=== PATIENT | female | born 1940 | race Hispanic/Latino ===

== ENCOUNTER 2016-11-23 08:12 | Day surgery (SDC) | payer MEDICARE ==
[2016-01-23 14:53] VITALS: PULSE 89
[2016-11-23] MEDS ORDERED: Midazolam 2 MG/2 ML VIAL ONE (10:00)
[2016-11-23] MEDS ORDERED: Propofol 10 mg/ml Inj (20 ML) ONE (10:00)
[2016-11-23] MEDS ORDERED: HYDROmorphone 0.5 mg/0.5 ml ISec IVP PRN (10:50)
[2016-11-23] MEDS ORDERED: Lactated Ringer's 1,000 ML IV SCH (11:17)
[2016-11-23 12:26] VITALS: RESP 20; TEMP 97.8
[2016-11-23 12:33] VITALS: BMI 30.9
[2016-11-23 13:08] VITALS: BP 118/74; PULSE 90; O2SAT 93
--- NOTE | 2016-12-10 11:15 | OP ---
PROCEDURE DATE: 11/23/2016 PREOPERATIVE DIAGNOSIS: Postmenopausal bleeding. POSTOPERATIVE DIAGNOSIS: Postmenopausal bleeding. PROCEDURE: Examination under anesthesia, dilation and curettage. SURGEON: Dk Bradshaw MD TYPE OF ANESTHESIA: General. ANESTHESIA ADMINISTERED BY: Eris Wilkerson MD FLUIDS: IV crystalloids and IV prophylactic antibiotics. DRAINS: None. ESTIMATED BLOOD LOSS: Minimal. CONDITION: Stable. CLINICAL FINDINGS: This is a 76-year-old female with a preoperative diagnosis as described above, who after discussion of the risks, benefits, expected outcomes of all treatment alternatives, elected for the surgery described above and signed written informed consent. DESCRIPTION OF PROCEDURE: The patient was brought the OR, placed under an adequate level of general anesthesia, then prepped and draped in the usual sterile for vaginal surgery. The legs placed and properly positioned in Cj universal stirrups. The bladder was drained to straight catheter. Examination under anesthesia was performed and weighted-speculum placed into the vagina. The cervix was placed on traction with tenaculum and gently dilated and curettage of the endometrial cavity was carried out. A small amount of benign-appearing tissue was obtained. The tenaculum was removed. No bleeding was noted from tenaculum site. No bleeding was noted from the cervical os. This concluded surgical procedure. The patient tolerated the procedure well and was brought to recovery in stable condition. Further treatment if necessary will depend upon the final pathologic results. Dk Bradshaw MD
== END 2016-11-23 12:55 | disposition home or self-care (01) ==
LOC: SDS 08:12
PROVIDERS: ATTEND Obstetrics & Gynecology Gynecology
DX: N95.0 Postmenopausal bleeding (principal); K21.9 Gastro-esophageal reflux disease without esophagitis; I10 Essential (primary) hypertension; I48.91 Unspecified atrial fibrillation; I69.354 Hemiplegia and hemiparesis following cerebral infarction affecting left non-dominant side; Z79.01 Long term (current) use of anticoagulants; G40.209 Localization-related (focal) (partial) symptomatic epilepsy and epileptic syndromes with complex partial seizures, not intractable, without status epilepticus; H81.10 Benign paroxysmal vertigo, unspecified ear; Z88.0 Allergy status to penicillin; Z88.8 Allergy status to other drugs, medicaments and biological substances
CPT/HCPCS: 58120; 88305; J1170; J2250; J2405; J2704; J3010; J7030; J7120 ×2